=== PATIENT | female | born 1975 | race African-American/Black ===

== ENCOUNTER 2017-04-30 14:51 | Emergency (ER) | payer SELFPAY ==
[~2017-04-30] VITALS: Ht 162.6 cm; Wt 67.0 kg
[2017-04-30] MEDS ORDERED: IBUPROFEN 600MG TABLET PO ONE (17:15)
[2017-04-30 17:20] VITALS: BP 150/98
== END 2017-04-30 17:48 | disposition home or self-care (01) ==
LOC: ER 15:26
DX: R07.89 Other chest pain (principal); V43.52XA Car driver injured in collision with other type car in traffic accident, initial encounter; Y93.89 Activity, other specified; Y99.8 Other external cause status; Y92.410 Unspecified street and highway as the place of occurrence of the external cause
CPT/HCPCS: 71010; 81025; 99283